=== PATIENT | male | born 1990 | race African-American/Black ===

== ENCOUNTER 2025-04-29 09:08 | Emergency (ER) | payer OTHER ==
[~2025-04-29] VITALS: Ht 190.5 cm; Wt 113.4 kg
[2025-04-29 09:15] VITALS: PULSE 89; RESP 18; TEMP 98.8
[2025-04-29] MEDS: METHYLPREDNISOLONE SOD SUCC 125 MG/2ML VIAL IM ONE (09:56)
[2025-04-29] MEDS: DIPHENHYDRAMINE HCL 25 MG CAP PO ONE (09:56)
[2025-04-29] MEDS: FAMOTIDINE 20 MG TAB PO ONE (09:57)
[2025-04-29] MEDS ORDERED: BENADRYL25 M1 PO (10:06)
[2025-04-29] MEDS ORDERED: PREDNISONE20 MG PO (10:06)
[2025-04-29] MEDS ORDERED: FAMOTIDINE20 MG PO (10:06)
[2025-04-29 10:43] VITALS: BP 136/96; PULSE 92; RESP 16; TEMP 97.9; O2SAT 99
== END 2025-04-29 10:42 | disposition home or self-care (01) ==
LOC: ER 09:34
DX: T78.3XXA Angioneurotic edema, initial encounter (principal)
CPT/HCPCS: 99282; J2919